=== PATIENT | male | born 1985 | race Two or more races ===

== ENCOUNTER 2022-07-11 17:14 | Emergency (ER) | payer SELFPAY ==
[~2022-07-11] VITALS: Ht 182.9 cm; Wt 92.0 kg
[2022-07-11] MEDS ORDERED: LIDOCAINE 1% HCL (LOCAL ANESTH.) INJ 20ML MDV ONE (18:44)
[2022-07-11] MEDS ORDERED: LIDOCAINE 1% HCL (LOCAL ANESTH.) INJ 20ML MDV ID ONE (19:00)
[2022-07-11 19:30] VITALS: BP 126/82
[2022-07-11] MEDS ORDERED: CEPH-510 PO (19:41)
== END 2022-07-11 20:20 | disposition home or self-care (01) ==
LOC: ER 17:14
DX: S62.637A Displaced fracture of distal phalanx of left little finger, initial encounter for closed fracture (principal); S62.665A Nondisplaced fracture of distal phalanx of left ring finger, initial encounter for closed fracture; S61.215A Laceration without foreign body of left ring finger without damage to nail, initial encounter; S61.217A Laceration without foreign body of left little finger without damage to nail, initial encounter; V86.59XA Driver of other special all-terrain or other off-road motor vehicle injured in nontraffic accident, initial encounter; Y93.89 Activity, other specified; Y92.89 Other specified places as the place of occurrence of the external cause; Y99.8 Other external cause status
CPT/HCPCS: 12002; 73130; 99283; J2001